=== PATIENT | male | born 1980 | race Two or more races ===

== ENCOUNTER 2020-03-27 19:29 | Emergency (ER) | payer BC ==
[2020-03-27] MEDS ORDERED: OXYCODONE-ACETAMINOPHEN 5-325 MG TABLET PO ONE (20:22)
--- NOTE | 2020-03-27 20:22 | ER Document Report ---
ED Medical Screen (RME) - General Chief Complaint: Testicular Pain Stated Complaint: TESTICULAR PAIN Time Seen by Provider: 03/27/20 20:18 Mode of Arrival: Ambulatory Information source: Patient Notes: Patient is a 39-year-old male comes emergency room complaining of testicular pain. 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 Patient rates his pain a 7 out of 10 currently he had nausea but no vomiting. Patient states he has an abrasion to the left side of his base of his shaft. States it is difficult to walk. Denies any other medical problems and does not smoke. Physical examination: Patient is a well-nourished well-developed 39-year-old male no apparent distress but appears uncomfortable. Cardiac: Patient displays a cardiac rate of 62 bpm on monitor no murmurs auscultated. Lungs: Bilateral breath sounds increased clear to auscultation no rhonchi rales or wheeze. No genitalia: Examination patient very concerned is his left testicle in the left shaft area along with suprapubic area tenderness. Patient also displays a abrasion to the left side of the penis. Palpation of the left testicle shows minimal amount of tenderness at this time. Most of the pain and discomfort is on the left side of the suprapubic area. I have greeted and performed a rapid initial assessment of this patient. A comprehensive ED assessment and evaluation of the patient, analysis of test results and completion of the medical decision making process will be conducted by additional ED providers. Dictation of this chart was performed using voice recognition software; therefore, there may be some unintended grammatical errors. - Related Data Allergies/Adverse Reactions: No Known Allergies Allergy (Unverified 03/27/20 20:20) Physical Exam - Vital signs Vitals: Temp Pulse Resp BP Pulse Ox 98.2 F 62 16 98/52 L 98 03/27/20 20:17 03/27/20 20:17 03/27/20 20:17 03/27/20 20:17 03/27/20 20:17 Course - Vital Signs Vital signs: Temp Pulse Resp BP Pulse Ox 98.2 F 62 16 98/52 L 98 03/27/20 20:17 03/27/20 20:17 03/27/20 20:17 03/27/20 20:17 03/27/20 20:17
--- NOTE | 2020-03-27 22:22 | RADIOLOGY REPORT (SQ) ---
TESTICULAR ULTRASOUND: 03/27/2020 9:13 PM [facility] HISTORY: 39-year old patient with concern for testicular torsion. COMPARISON: None available TECHNIQUE: Multiple longitudinal and transverse sonographic images were obtained of the right and left testicle. Color and spectral doppler images were obtained of the testicular vasculature. FINDINGS: There is nonspecific scrotal wall thickening present. Both testicles appear homogenous without evidence of a mass. The left testicle appears normal in size, and it measures 4.0 x 2.1 x 2.8 cm. The left testicle appears homogeneous in echotexture and demonstrates arterial blood flow within the testicle. The left epididymal head appears normal in size and does not appear hyperemic. The right testicle appears normal in size, and it measures 4.1 x 2.5 x 3.4 cm. The right testicle appears homogeneous in echotexture and demonstrates good arterial blood flow within the testicle. The right epididymal head appears normal in size and does not appear hyperemic. There are few echogenic foci within the right testicle which do not quite meet criteria for microlithiasis. IMPRESSION: 1. No evidence is seen to suggest testicular torsion. 2. No intratesticular mass is seen.
[2020-03-28] MEDS ORDERED: HYDROCODONE/ACETAMINOPHEN 5-325 MG (6 TAB/ER DISP) PO PRN (02:35)
--- NOTE | 2020-03-28 02:36 | ER Document Report ---
ED GI/ - General Chief Complaint: Scrotal Pain, Acute Onset Stated Complaint: TESTICULAR PAIN Time Seen by Provider: 03/27/20 20:18 Mode of Arrival: Ambulatory Notes: Patient is a 39-year-old male who comes emergency department for chief complaint of injury to the scrotum area. Patient states that yesterday this occurred, he states he was working outside with boots, coming off a stepladder when he slipped and lost his balance, he states that while he tried to catch himself he straddled and landed on a PVC pipe. He states his legs did not touch the ground and the groin/scrotum took the brunt of the injury. He states that the area was hurting a lot but improved over time and he thought he was okay. He states that this morning while taking a shower he was surprised how swollen the area was and he became concerned so he came in for evaluation. He also has an abrasion along the side of the scrotum on the left. He states his blood slightly initially but then stopped without any intervention. Up-to-date on vaccines. Denies any other injuries. He is able to urinate without difficulty, denies hematuria, he is able to defecate normally and did not have incontinence, he denies numbness of the groin or lower extremities. He denies any other complaints. No past medical history reported. at bedside. - Related Data Allergies/Adverse Reactions: No Known Allergies Allergy (Unverified 03/27/20 20:20) Past Medical History - General Information source: Patient - Social History Smoking Status: Never Smoker Chew tobacco use (# tins/day): No Frequency of alcohol use: Occasional Drug Abuse: None Lives with: Family Family History: Reviewed & Not Pertinent Patient has homicidal ideation: No - Immunizations Immunizations up to date: Yes Hx Diphtheria, Pertussis, Tetanus Vaccination: Yes Review of Systems - Review of Systems Constitutional: No symptoms reported EENT: No symptoms reported Cardiovascular: No symptoms reported Respiratory: No symptoms reported Gastrointestinal: No symptoms reported Genitourinary: See HPI Male Genitourinary: See HPI Musculoskeletal: No symptoms reported Skin: No symptoms reported Hematologic/Lymphatic: No symptoms reported Neurological/Psychological: No symptoms reported Physical Exam - Vital signs Vitals: Temp Pulse Resp BP Pulse Ox 98.2 F 62 16 98/52 L 98 03/27/20 20:17 03/27/20 20:17 03/27/20 20:17 03/27/20 20:17 03/27/20 20:17 - Notes Notes: GENERAL: Alert, interacts well. No acute distress. HEAD: Normocephalic, atraumatic. EYES: Pupils equal, round, and reactive to light. Extraocular movements intact. ENT: Oral mucosa moist, tongue midline. Oropharynx unremarkable. Airway patent. NECK: Full range of motion. Supple. Trachea midline. No lymphadenopathy. LUNGS: Clear to auscultation bilaterally, no wheezes, rales, or rhonchi. No r espiratory distress. Non-tender chest wall. HEART: Regular rate and rhythm. No murmur ABDOMEN: Soft, non-tender. Non-distended. No signs of trauma GENITOURINARY: There is swelling and contusion noted mainly to the right and inferior aspect of the scrotum, there is a small abrasion over the left side but no swelling or contusion noted in this area. There is no induration or fluctuance, no bleeding, no discolored discharge. Shaft of the penis and head of the penis are unremarkable without signs of trauma. Perineum is nontender. EXTREMITIES: Moves all 4 extremities spontaneously. No edema, normal radial and dorsalis pedis pulses bilaterally. No cyanosis. BACK: no cervical, thoracic, lumbar midline tenderness. No saddle anesthesia, normal distal neurovascular exam. Moves all extremities in full range of motion. NEUROLOGICAL: Alert and oriented x3. Normal speech. Cranial nerves II through XII grossly intact. Strength 5/5 in all extremities. PSYCH: Normal affect, normal mood. SKIN: Warm, dry, normal turgor. No rashes or lesions noted. Course - Re-evaluation Re-evalutation: Patient does have a contusion noted to the scrotum, this is mainly over the right aspect of the scrotum, there is also an abrasion over the left side of the scrotum. The perineum is unremarkable, patient has no neurovascular deficits, patient ambulates without difficulty, there are no signs of trauma to the shaft of the penis, patient urinates without difficulty or hematuria. Ultrasound reviewed and shows no acute findings other than the soft tissue swelling. Appears to be soft tissue swelling only from the contusion, injury happened yesterday. I discussed all details with patient. Patient will be discharged with symptom management, discussed recommendations, discussed follow-up, discussed return precautions. Patient and state understanding and agreement. - Vital Signs Vital signs: Temp Pulse Resp BP Pulse Ox 97.5 F 60 15 115/70 98 03/28/20 02:48 03/28/20 02:48 03/28/20 02:48 03/28/20 02:48 03/28/20 02:48 Discharge - Discharge Clinical Impression: Groin injury Qualifiers: Encounter type: initial encounter Qualified Code(s): S39.91XA - Unspecified injury of abdomen, initial encounter Scrotal injury Qualifiers: Encounter type: initial encounter Qualified Code(s): S39.94XA - Unspecified injury of external genitals, initial encounter Abrasion of scrotum Qualifiers: Encounter type: initial encounter Qualified Code(s): S30.813A - Abrasion of scrotum and testes, initial encounter Contusion of scrotum Qualifiers: Encounter type: initial encounter Qualified Code(s): S30.22XA - Contusion of scrotum and testes, initial encounter Condition: Stable Disposition: HOME, SELF-CARE Additional Instructions: Your exam shows tissue injury, bruising, swelling, and the skin abrasion. However your exam otherwise is reassuring and your ultrasound does not show any concerning findings. Keep the abrasion clean, clean gently with soap and water, apply topical antibiotic to the area. I recommend you wear supportive underwear, you can ice the scrotum several times a day as well to reduce the swelling. Take the naproxen anti-inflammatory during the day and take the stronger pain medication at night to help you sleep if needed (see listed precautions). Return if you worsen including severe worsening pain, developing or spreading redness, bloody urine, developing numbness, loss of control of your bowel or bladder, or any other concerning or worsening symptoms. Prescriptions: Naproxen 500 mg PO BID PRN #20 tablet PRN Reason:
[2020-03-28 02:50] VITALS: BP 115/70
== END 2020-03-28 02:48 | disposition home or self-care (01) ==
LOC: ER 19:29
DX: S39.91XA Unspecified injury of abdomen, initial encounter (principal); S39.94XA Unspecified injury of external genitals, initial encounter; S30.813A Abrasion of scrotum and testes, initial encounter; S30.22XA Contusion of scrotum and testes, initial encounter; N50.82 Scrotal pain; N50.89 Other specified disorders of the male genital organs; W01.198A Fall on same level from slipping, tripping and stumbling with subsequent striking against other object, initial encounter
CPT/HCPCS: 76870; 93976; 99285